=== PATIENT | male | born 1970 | race Caucasian/White ===

== ENCOUNTER 2021-03-22 22:40 | Emergency (ER) | payer MEDICAID ==
[~2021-03-22] VITALS: Ht 162.6 cm; Wt 72.6 kg
[2021-03-22 23:08] VITALS: BP 126/70
--- NOTE | 2021-03-22 23:13 | NUR ---
TO BED 9 FOLLOWING TRIAGE
[2021-03-22] MEDS ORDERED: ONDANSETRON 4 MG/2 ML VIAL IVP ONE (23:20)
[2021-03-22] MEDS ORDERED: MECLIZINE 25 MG TAB PO ONE (23:20)
[2021-03-22] MEDS ORDERED: NACL 0.9% 500 ML IV ONE (23:20)
--- NOTE | 2021-03-22 23:30 | NUR ---
received pt from intake and placed to bed 09. pt currently a/ox 4, gcs 15. able to move all extremities freely. pt is a 50 year old male with no hx coming from home for cc of n/v and dizziness x 1 hour. per pt, it was just spontaneous. pt presents with s/sx of possible vertigo. sts when moving head or turning head that he easily gets nauseous and dizzy. NAD at this time.
[2021-03-22 23:32] LABS: BASOPHILS % (AUTO) 0.4 % (0.0-2.0); EOSINOPHILS # (AUTO) 0.1 K/uL (0-0.4); EOSINOPHILS % (AUTO) 1.5 % (0.0-4.0); HEMATOCRIT 44.1 % (36-52); LYMPHOCYTES # (AUTO) 2.4 K/uL (2.0-11.5); LYMPHOCYTES % (AUTO) 32.3 % (20.5-51.1); MEAN CORPUSCULAR HEMOGLOBIN 30 pg (27-31); MEAN CORPUSCULAR HGB CONC 34 g/dL (33-37); MEAN CORPUSCULAR VOLUME 88.6 fL (80-94); MONOCYTES # (AUTO) 0.4 K/uL (0.8-1.0); MONOCYTES % (AUTO) 5.7 % (1.7-9.3); NEUTROPHILS # (AUTO) 4.5 K/uL (1.8-7.7); NEUTROPHILS % (AUTO) 60.1 % (42.2-75.2); PLATELET COUNT (AUTO) 259 K/uL (140-450); RED BLOOD CELL COUNT(AUTO) 4.97 MIL/uL (4.20-6.10); RED CELL DISTRIBUTION WIDTH 13.4 % (11.6-13.7); WHITE BLOOD COUNT (AUTO) 7.4 K/uL (4.8-10.8)
--- NOTE | 2021-03-22 23:43 | NUR ---
Dr. Kent at bedside for MSE
[2021-03-22] MEDS ORDERED: diazePAM 5 MG TAB PO ONE (23:50)
[2021-03-23 00:19] LABS: ALBUMIN 3.9 g/dL (3.4-5.0); ANION GAP 10.8 (8-16); CARBON DIOXIDE 29.4 mmol/L (21-32); CREATININE 0.6 mg/dL (0.6-1.3); POTASSIUM 3.2 mmol/L (3.5-5.1); TOTAL BILIRUBIN 0.3 mg/dL (0.0-1.0)
--- NOTE | 2021-03-23 00:38 | NUR ---
Dr. Kent at bedside for RME
[2021-03-23 01:10] VITALS: BP 111/65
[2021-03-23] MEDS ORDERED: MECL-303 PO (02:06)
--- NOTE | 2021-03-23 02:10 | NUR ---
d/c with VSS. d/c education given. opportunity to ask questions given and asnwered. rx of meclizine given. IV site removed, bleeding controlled with sterile gauze and reinforced with tape.
== END 2021-03-23 02:10 | disposition home or self-care (01) ==
LOC: MED 22:40
DX: H81.399 Other peripheral vertigo, unspecified ear (principal)
CPT/HCPCS: 36415; 71045; 80053; 83690; 84484; 85025; 93005; 96361; 96374; 99285; J2405; J7030; J8597; Q0092